=== PATIENT | female | born 1940 | race Caucasian/White ===

== ENCOUNTER 2017-03-09 08:00 | Outpatient (CLI) | payer MEDICARE, OTHER | END 2017-03-09 08:01 | disposition home or self-care (01) | DX: E78.00 Pure hypercholesterolemia, unspecified (principal) ==

== ENCOUNTER 2017-03-17 08:00 | Outpatient (CLI) | payer MEDICARE, OTHER | END 2017-03-17 08:01 | disposition home or self-care (01) | DX: Z12.31 Encounter for screening mammogram for malignant neoplasm of breast (principal); Z85.3 Personal history of malignant neoplasm of breast; Z90.12 Acquired absence of left breast and nipple ==

== ENCOUNTER 2017-03-20 14:06 | Outpatient (CLI) | payer MEDICARE, OTHER | END 2017-03-20 14:07 | disposition home or self-care (01) | DX: M85.88 Other specified disorders of bone density and structure, other site (principal) ==

== ENCOUNTER 2017-03-25 07:42 | Outpatient (CLI) | payer MEDICARE, OTHER ==
[2017-03-25] MEDS ORDERED: GADOBUTROL 7.5 MMOL/7.5 ML VIAL IVP ONE (08:29)
--- NOTE | 2017-03-25 12:04 | MRI Report ---
MRI BRAIN WITHOUT AND WITH CONTRAST CLINICAL HISTORY: 76-year-old female with headache. History of breast cancer. Please assess. COMPARISON: None. TECHNIQUE: 1. T1 sagittal and fat-saturated T2 coronal. 2. Axial 3-D T1 MP RAGE, FLAIR, T2, T2*, and DWI. 3. 6 mL of IV Gadavist. T1 3-D axial sequence. FINDINGS: There is very mild generalized prominence of the cerebral cortical sulci and third and lateral ventri cles, well within normal limits for stated age. A very mild amount of white matter disease is identified in the supratentorial brain, manifested as f ocal and confluent T2 hyperintensities that are scattered throughout the periventricular, deep, and s ubcortical white matter of the frontal and parietal lobes. Signal intensity of cortex and white matte r is otherwise unremarkable. Flow voids are demonstrated in the main intracranial arteries. No abnormal diffusion restriction is d emonstrated. No evidence of acute or chronic hemorrhage on T2* GRE sequence. No enhancing space-occupying mass lesion is demonstrated on postcontrast sequence. In addition, no pa thologic meningeal or cranial nerve enhancement is identified. There is normal intravascular contrast enhancement in the dural venous sinuses and deep venous structures. This effectively excludes the po ssibility of venous thrombosis. Limited assessment of the orbits reveals no gross pathology. There is minor mucosal thickening in a few ethmoid air cells. The paranasal sinuses are otherwise elisha ar. A small amount of fluid is identified in the left mastoid, most prominent in the mastoid tip. The etiology is uncertain. No soft tissue swelling is identified overlying the left mastoid. In addition , there is no evidence of an obstructing nasopharyngeal mass. Marrow signal intensity in the regional skeletal structures is unremarkable. In particular, no T2 hyp erintense or enhancing bone metastasis is demonstrated. IMPRESSION: 1. A very mild amount of white matter disease is identified, as described. The findings are relativel y nonspecific; however, this most likely represents chronic microangiopathy. 2. Otherwise, unremarkable brain MRI. In particular, no evidence of arch and, hemorrhage, space-occup mraciano mass lesion or other acute intracranial pathology. 3. Small left mastoid effusion, as described above, of uncertain etiology and clinical significance. The possibility of active infection is considered unlikely; however, clinical correlation is advised. Referring Provider Line: [phone] SITE ID: [id number]
== END 2017-03-25 07:43 | disposition home or self-care (01) ==
LOC: DI 07:42
PROVIDERS: ATTEND Physician Assistant Medical
DX: R01.1 Cardiac murmur, unspecified (principal); R90.82 White matter disease, unspecified; M85.88 Other specified disorders of bone density and structure, other site; R51 Headache; Z85.3 Personal history of malignant neoplasm of breast
CPT/HCPCS: 70553; 77080; 93306; A9585

== ENCOUNTER 2018-04-07 07:00 | Outpatient (CLI) | payer MEDICARE, OTHER ==
--- NOTE | 2018-04-08 14:11 | Mammography Report ---
DIGITAL SCREENING MAMMOGRAM: 04/07/2018 CLINICAL INDICATION: A 77-year-old with personal history of left breast cancer, status post mastectomy and chemoradiation. TECHNIQUE: Routine right CC and MLO projections were obtained. COMPARISON: 03/2017, 10/2015, 07/2014, 07/2013, 07/2012, 06/2011, 06/2010. FINDINGS: The right breast again demonstrates heterogeneously dense fibroglandular parenchyma. Coarse and punctate, typically benign calcifications are present. No suspicious masses, clustered microcalcifications, or regions of architectural distortion are identified. IMPRESSION: BENIGN FINDINGS. RECOMMENDATION: Routine annual screening unless otherwise clinically indicated. BI-RADS CATEGORY 2 - BENIGN FINDINGS. STANDARD QUALIFYING STATEMENTS: 1. This examination was reviewed with the aid of Computer-Aided Detection (CAD). 2. A negative or benign imaging report should not delay biopsy if clinically suspicious findings are present. Consider surgical consultation if warranted. More than 5% of cancers are not identified by imaging. 3. Dense breasts may obscure an underlying neoplasm. TD: 04/08/2018 14:00
== END 2018-04-07 07:01 | disposition home or self-care (01) ==
LOC: DI 07:00
PROVIDERS: ATTEND Family Medicine
DX: Z12.31 Encounter for screening mammogram for malignant neoplasm of breast (principal); Z08 Encounter for follow-up examination after completed treatment for malignant neoplasm; Z85.3 Personal history of malignant neoplasm of breast

== ENCOUNTER 2018-09-01 08:44 | Outpatient (CLI) | payer MEDICARE, OTHER ==
[2018-09-01 14:22] LABS: ALBUMIN 4.2 g/dL (3.2-5.5); ALBUMIN/GLOBULIN RATIO 1.6 (1.0-2.2); ALKALINE PHOSPHATASE 86 IU/L (42-121); ALT ALANINE AMINOTRANSFERASE 25 IU/L (10-60); AST ASPARTATE AMINOTRANSFERASE 29 IU/L (10-42); BILIRUBIN,TOTAL 1.6 mg/dL (0.2-1.0); BUN - BLOOD UREA NITROGEN 17 mg/dL (6-20); CALCIUM 9.2 mg/dL (8.5-10.3); CARBON DIOXIDE - CO2 28 mmol/L (21-32); CHLORIDE 100 mmol/L (101-111); CHOLESTEROL 236 mg/dL; CREATININE 0.6 mg/dL (0.4-1.0); GFR - MDRD 97 (>89); GLUCOSE 101 mg/dL (70-100); HDL CHOLESTEROL 80 mg/dL; LDL CHOLESTEROL,CALCULATED 148 mg/dL; LDL/HDL RATIO 1.9 (<4.4); SODIUM 135 mmol/L (135-145); TOTAL PROTEIN 6.9 g/dL (6.7-8.2); VLDL CHOLESTEROL 8 mg/dL
== END 2018-09-01 08:45 ==
LOC: LAB.WCP 08:44
PROVIDERS: ATTEND Family Medicine
DX: R74.8 Abnormal levels of other serum enzymes (principal); E78.5 Hyperlipidemia, unspecified
CPT/HCPCS: 36415; 80053; 80061; 83721

== ENCOUNTER 2018-09-06 18:50 | Outpatient (CLI) | payer MEDICARE, OTHER ==
--- NOTE | 2018-09-06 20:11 | Ultrasound Report ---
Reason: LEG EDEMA,LEFT Procedure Date: 09/06/2018 Accession Number: [id number] / [id number] Procedure: US - Duplex Ext Veins Left CPT Code: FULL RESULT: EXAM: LEFT LOWER EXTREMITY VENOUS ULTRASOUND EXAM DATE: 09/06/2018 07:16 PM. CLINICAL HISTORY: LEG EDEMA,LEFT. COMPARISON: None. TECHNIQUE: Real-time sonographic vascular imaging was performed by the mark up designer through the lower extremity utilizing both color-flow and Doppler spectral analysis. Multiple data entry representative static images were saved for review. FINDINGS: Common Femoral Vein (CFV): Normal. CFV-GSV Junction: Normal. Profunda Femoral Vein (PFV): Normal. Femoral Vein (FV) Prox: Normal. Femoral Vein (FV) Mid: Normal. Femoral Vein (FV) Dist: Normal. Popliteal Vein: Normal. Posterior Tibial Veins: Normal. Peroneal Veins: Normal. Contralateral Side CFV: Normal. Other: Thin lateral knee compartment fluid collection may be secondary to joint effusion. IMPRESSION: No evidence for deep venous thrombosis. RADIA
== END 2018-09-06 18:51 | disposition home or self-care (01) ==
LOC: DI 18:50
PROVIDERS: ATTEND Family Medicine
DX: R60.0 Localized edema (principal)

== ENCOUNTER 2018-11-01 11:43 | Outpatient (CLI) | payer MEDICARE, OTHER ==
--- NOTE | 2018-11-01 18:38 | Ultrasound Report ---
Reason: BREAST PAIN,LEFT,BREAST CANCER,PERSONAL HX Procedure Date: 11/01/2018 Accession Number: [id number] / [id number] Procedure: US - Breast Unilateral Limited CPT Code: FULL RESULT: EXAM: Breast Unilateral Limited DATE: 11/01/2018 1:12 PM CLINICAL HISTORY: History of left mastectomy in 1994 with one month history of diffuse pain to the mastectomy site greatest in the inferior aspect as well as heightened cold sensitivity. TECHNIQUE: Real-time sonography was performed of both technologist and the radiologist over the mastectomy bed with greatest attention to the inferior site as directed by the patient. COMPARISON: None FINDINGS: Only normal tissues are noted throughout the mastectomy site, with attention to inferior tissues. No masses or concerning findings. IMPRESSION: No sonographic findings to correlate to symptoms of pain of the inferior mastectomy site and/or heightened cold sensitivity. Benign. BI-RADS Category 2. Clinical follow-up of symptoms is recommended with her PCP. Patient should return for additional imaging for increase in current symptoms or new symptoms or concern. This was discussed with the patient.
== END 2018-11-01 11:44 | disposition home or self-care (01) ==
LOC: DI 11:43
PROVIDERS: ATTEND Nurse Practitioner
DX: N64.4 Mastodynia (principal); Z85.3 Personal history of malignant neoplasm of breast; Z90.12 Acquired absence of left breast and nipple
CPT/HCPCS: 76642

== ENCOUNTER 2019-03-17 07:23 | Outpatient (CLI) | payer MEDICARE, OTHER ==
[2019-03-17 14:05] LABS: BASOPHILS % (AUTO) 0.8 %; EOSINOPHILS # (AUTO) 0.2 10^3/uL (0.0-0.7); EOSINOPHILS % (AUTO) 4.4 %; HGB - HEMOGLOBIN 12.9 g/dL (12.0-16.0); LYMPHOCYTES # (AUTO) 0.6 10^3/uL (1.5-3.5); LYMPHOCYTES % (AUTO) 15.1 %; MEAN CORPUSCULAR HEMOGLOBIN 28.2 pg (27.0-31.0); MEAN CORPUSCULAR HGB CONC 33.5 g/dL (32.0-36.0); MEAN CORPUSCULAR VOLUME 84.3 fL (81.0-99.0); MEAN PLATELET VOLUME 7.8 fL (7.9-10.8); MONOCYTES # (AUTO) 0.3 10^3/uL (0.0-1.0); MONOCYTES % (AUTO) 7.9 %; NEUTROPHILS % (AUTO) 71.8 %; PLT - PLATELET COUNT 248 10^3/uL (130-450); RED BLOOD COUNT 4.57 10^6/uL (4.20-5.40); RED CELL DISTRIBUTION WIDTH 15.5 % (12.0-15.0); WHITE BLOOD COUNT 4.2 x10^3/uL (4.8-10.8)
[2019-03-17 14:19] LABS: ALBUMIN 3.8 g/dL (3.2-5.5); ALBUMIN/GLOBULIN RATIO 1.2 (1.0-2.2); ALKALINE PHOSPHATASE 94 IU/L (42-121); ALT ALANINE AMINOTRANSFERASE 20 IU/L (10-60); AST ASPARTATE AMINOTRANSFERASE 25 IU/L (10-42); BILIRUBIN,TOTAL 1.3 mg/dL (0.2-1.0); BUN - BLOOD UREA NITROGEN 14 mg/dL (6-20); CALCIUM 9.1 mg/dL (8.5-10.3); CARBON DIOXIDE - CO2 27 mmol/L (21-32); CHLORIDE 99 mmol/L (101-111); CHOL/HDL RATIO 2.6 (<4.4); CHOLESTEROL 208 mg/dL; CREATININE 0.6 mg/dL (0.4-1.0); GFR - MDRD 97 (>89); GLUCOSE 98 mg/dL (70-100); HDL CHOLESTEROL 79 mg/dL; LDL CHOLESTEROL,CALCULATED 121 mg/dL; LDL/HDL RATIO 1.5 (<4.4); SODIUM 134 mmol/L (135-145); TOTAL PROTEIN 6.9 g/dL (6.7-8.2); VLDL CHOLESTEROL 8 mg/dL
== END 2019-03-17 07:24 | disposition home or self-care (01) ==
LOC: LAB.WCP 07:23
PROVIDERS: ATTEND Family Medicine
DX: R74.8 Abnormal levels of other serum enzymes (principal); R68.89 Other general symptoms and signs; E78.5 Hyperlipidemia, unspecified
CPT/HCPCS: 36415; 80053; 80061; 83721; 84443; 85025

== ENCOUNTER 2019-03-25 08:40 | Outpatient (CLI) | payer MEDICARE, OTHER ==
--- NOTE | 2019-03-28 08:37 | Mammography Report ---
Reason: SCREENING MAMMO, LEUKOCYTOPENIA Procedure Date: 03/25/2019 Accession Number: [id number] / [id number] Procedure: JOHN - Screening Mammo Right w/Irwin CPT Code: FULL RESULT: EXAM: Screening Mammo Right w/Irwin DATE: 03/25/2019 9:03 AM CLINICAL HISTORY: Personal history of treated left breast cancer status post mastectomy in 1994. Screening right breast. TECHNIQUE: (R) - Right CC and MLO views were obtained. COMPARISON: 04/07/2018 through 08/03/2014 PARENCHYMAL PATTERN: (D) - The breast demonstrates heterogeneously dense fibroglandular parenchyma. FINDINGS: Right breast: There are no suspicious masses, calcifications, or areas of distortion. IMPRESSION: Negative examination. BI-RADS category 1. RECOMMENDATION: (ANNUAL) - Recommend routine annual screening mammography. BI-RADS CATEGORY: (1) - Negative. STANDARD QUALIFYING STATEMENTS: 1. This examination was not reviewed with the aid of Computer-Aided Detection (CAD). 2. A negative or benign imaging report should not preclude biopsy if clinically suspicious findings are present. 3. Dense breasts may obscure an underlying neoplasm. 4. This examination was reviewed with the aid of 3D breast imaging (tomosynthesis).
== END 2019-03-25 08:41 | disposition home or self-care (01) ==
LOC: DI 08:40
PROVIDERS: ATTEND Internal Medicine Hematology & Oncology
DX: Z12.31 Encounter for screening mammogram for malignant neoplasm of breast (principal); Z85.3 Personal history of malignant neoplasm of breast; Z90.12 Acquired absence of left breast and nipple
CPT/HCPCS: 77063

== ENCOUNTER 2019-08-11 08:00 | Outpatient (CLI) | payer MEDICARE, OTHER | END 2019-08-11 23:59 | disposition home or self-care (01) | LOC: LAB.WCP 08:00 | PROVIDERS: ATTEND Family Medicine | DX: R51 Headache (principal) | CPT/HCPCS: 36415; 85651; 86140 ==

== ENCOUNTER 2019-08-22 11:59 | Outpatient (CLI) | payer MEDICARE, OTHER ==
--- NOTE | 2019-08-22 14:21 | MRI Report ---
Reason: HEADACHE Procedure Date: 08/22/2019 Accession Number: [id number] / [id number] Procedure: MRI - Angio Brain W/O (MRA) CPT Code: FULL RESULT: EXAM MRA BRAIN EXAM DATE: 08/22/2019 12:56 PM. CLINICAL HISTORY: Headache and confusion. Reported family history of aneurysm. COMPARISON: None. TECHNIQUE: Multiplanar, multisequence MRA sequences of the brain were performed. Other: None. Post-processing: Multiplanar 3D MIP reconstructions. IV Contrast: None. FINDINGS: Minimal visualized signal in the region of the left vertebral artery lumen proximal to the left PICA origin. Absence of expected arterial flow signal in the distal left extracranial vertebral artery. The left PICA may be filling via retrograde flow in the left vertebral artery terminal segment. Possible arterial occlusive disease, of unknown duration or etiology, of the proximal left intradural vertebral artery and/or left cervical vertebral artery. Unremarkable appearance of what may be congenitally dominant distal right vertebral artery which continues as the basilar artery which also appears unremarkable. Patent well-developed right posterior communicating artery. No other evidence for proximal intracranial large artery flow-limiting stenosis, occlusion or filling defect, specifically with reference to the anterior, middle and posterior cerebral arteries. Both distal internal carotid arteries are patent. There appears to be a shallow wide-necked asymmetric arterial protrusion from the inferomedial aspect of the ophthalmic segment of the right ICA. This measures as much as 3 mm wide and 1.5 mm deep on, for example, reference image 16 of series 403. No other evidence for aneurysm of the redding of Khan. IMPRESSION: 1. Nonspecific shallow arterial asymmetric protrusion from the right supraclinoid ICA up to 3 x 1.5 mm. This may represent small shallow wide-necked aneurysm, arterial degenerative irregularity/ectasia or imaging artifact. Head MRA follow-up to establish stability in one year is suggested. 2. Absence of normal visualized arterial flow signal in the left vertebral artery below the left PICA origin. This is of unknown etiology or duration. Acquired arterial occlusive disease or congenital variant in anatomy may account for this appearance which could be further characterized as clinically warranted by MRA or CTA of the neck. 3. Otherwise grossly unremarkable screening redding of Khan MRA. RADIA
== END 2019-08-22 12:00 | disposition home or self-care (01) ==
LOC: DI 11:59
PROVIDERS: ATTEND Family Medicine
DX: R51 Headache (principal)
CPT/HCPCS: 70544

== ENCOUNTER 2019-08-30 16:14 | Outpatient (CLI) | payer MEDICARE, OTHER ==
--- NOTE | 2019-09-01 09:55 | MRI Report ---
Reason: VERTEBRAL ARTERY STENOSIS Procedure Date: 08/30/2019 Accession Number: [id number] / [id number] Procedure: MRI - Angio Neck W/O (MRA) CPT Code: FULL RESULT: EXAM: MR ANGIOGRAM NECK EXAM DATE: 08/30/2019 05:19 PM. CLINICAL HISTORY: Vertebral artery stenosis. COMPARISON: MR angiogram head 08/22/2019. TECHNIQUE: [id number] MRA sequences of the neck were performed. Other: None. Post-processing: Multiplanar 3D MIP reconstructions. IV Contrast: None. Evaluation of arterial stenosis is based on a NASCET method of measurement. FINDINGS: The CCA and cervical ICA demonstrate no significant stenosis on the right or on the left. The right vertebral artery is patent throughout its cervical course without significant narrowing present. The right vertebral artery is dominant. 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 2. No significant stenosis is seen in either cervical ICA or the dominant right vertebral artery. RADIA
== END 2019-08-30 16:15 | disposition home or self-care (01) ==
LOC: DI 16:14
PROVIDERS: ATTEND Family Medicine
DX: I65.02 Occlusion and stenosis of left vertebral artery (principal)
CPT/HCPCS: 70547

== ENCOUNTER 2020-04-20 08:42 | Outpatient (CLI) | payer MEDICARE, OTHER ==
--- NOTE | 2020-04-23 09:55 | Mammography Report ---
UNILATERAL RIGHT DIGITAL SCREENING MAMMOGRAM 3D/2D: 04/20/2020 CLINICAL: Routine screening. Personal history of left breast cancer with mastectomy. Comparison is made to exams dated: 03/25/2019 mammogram, 04/07/2018 mammogram, 03/17/2017 mammogram, and 11/05/2015 mammogram - [facility]. The tissue of right breast is heterogeneousl y dense. This may lower the sensitivity of mammography. There are benign calcifications in the right breast. There also are benign vascular calcifications i n the right breast. No significant masses, calcifications, or other findings are seen in the breast. There has been no significant interval change. IMPRESSION: There is no mammographic evidence of malignancy. A 1 year screening mammogram is recommended. This exam was interpreted at Station ID: [id number]. NOTE: For mammograms, a report in lay terms will be sent to the patient. Approximately 15% of breast malignancies will not be visualized mammographically. In the management of a palpable breast mass, a negative mammogram must not discourage biopsy of a clinically suspicious lesion. Electronically Signed By: Bryson Ramirez M.D. ddidalia/penrad:04/20/2020 12:15:29 ACR BI-RADS Category 2: Benign Finding(s) 3342F PARENCHYMAL PATTERN: (D) - The breast(s) demonstrate(s) heterogeneously dense fibroglandular nathalia do. BI-RADS CATEGORY: (2) - 2 RECOMMENDATION: (ANNUAL) - Recommend routine annual screening mammography. [id number] 1 year screening LATERALITY: (B)
== END 2020-04-20 08:43 | disposition home or self-care (01) ==
LOC: DI 08:42
PROVIDERS: ATTEND Internal Medicine Hematology & Oncology
DX: Z12.31 Encounter for screening mammogram for malignant neoplasm of breast (principal); Z85.3 Personal history of malignant neoplasm of breast; Z90.12 Acquired absence of left breast and nipple
CPT/HCPCS: 77063

== ENCOUNTER 2020-04-25 09:20 | Outpatient (CLI) | payer MEDICARE, OTHER ==
--- NOTE | 2020-04-25 09:53 | XRAY Report ---
Reason: RIGHT HAND PAIN Procedure Date: 04/25/2020 Accession Number: [id number] / [id number] Procedure: WCP - Hand 3 View RT CPT Code: Final Report FULL RESULT: PROCEDURE: Hand 3 View RT INDICATIONS: RIGHT HAND PAIN TECHNIQUE: 3 views of the hand(s) acquired. COMPARISON: None FINDINGS: Bones: No fractures or dislocations. Diffuse interphalangeal joint degeneration, most pronounced at the index finger DIP joint. First CMC and triscaphe joint degeneration. Numerous marginal and juxta-articular lucencies are present primarily at the second and third MCP joints, distal interphalangeal joints of the middle and ring finger as well as the first MCP joint. There is also lucency involving the distal radius. Soft tissues: No suspicious soft tissue calcifications. IMPRESSION: Diffuse hand joint degeneration, most pronounced at the index finger DIP joint Scattered juxta-articular lucencies suspicious for erosions/inflammatory arthropathy. Reviewed by: Dima Berumen MD on 04/25/2020 9:52 AM PDT Approved by: Dima Berumen MD on 04/25/2020 9:52 AM PDT Station ID: [id number]
== END 2020-04-25 23:59 | disposition home or self-care (01) ==
LOC: DI.WCP 09:20
PROVIDERS: ATTEND Family Medicine
DX: M19.041 Primary osteoarthritis, right hand (principal)

== ENCOUNTER 2020-05-04 07:00 | Outpatient (CLI) | payer MEDICARE, OTHER | END 2020-05-04 23:59 | disposition home or self-care (01) | LOC: LAB.R 07:00 | PROVIDERS: ATTEND Family Medicine | DX: E78.5 Hyperlipidemia, unspecified (principal) | CPT/HCPCS: 83721 ==

== ENCOUNTER 2020-05-23 08:09 | Outpatient (CLI) | payer MEDICARE, OTHER ==
--- NOTE | 2020-05-23 10:10 | DEXA Report ---
Reason: BONE DISORDER Procedure Date: 05/23/2020 Accession Number: [id number] / [id number] Procedure: DEX - Dexa Spine and/or Hip CPT Code: Final Report FULL RESULT: PROCEDURE: Dexa Spine and/or Hip INDICATIONS: BONE DISORDER TECHNIQUE: Dual energy x-ray absorptiometry (DXA) was performed on a [employer]. Regions measured are the AP Spine, femoral neck, and if needed forearm. COMPARISON: Dexa, march 20, 2015. FINDINGS: Lumbar Spine (L1 and L2): Bone Mineral Density 1.001 g/cm/cm,T score -1.1, -0.8 Left Hip: Bone Mineral Density 0.842 g/cm/cm,T score -1.3, (T score greater or equal to -1.0: NORMAL) (T score from -1.1 to -2.4: OSTEOPENIA) (T score less than or equal to -2.5 to: OSTEOPOROSIS) Impression: The patient is osteopenic based on WHO criteria. Compared with 03/20/2017, the patient's bone density has increased in lumbar spine but not significant changed in the left hip. Patients with diagnosis of osteoporosis or osteopenia should have regular bone mineral density assessment. For those eligible for Medicare, routine testing is allowed once every 2 years. Testing frequency can be increased for patients who have rapidly progressing disease or for those who are receiving medical therapy to restore bone mass. Reviewed by: Eleni Roberts MD on 05/23/2020 10:09 AM PDT Approved by: Eleni Roberts MD on 05/23/2020 10:09 AM PDT Station ID: [id number]
== END 2020-05-23 08:10 | disposition home or self-care (01) ==
LOC: DI 08:09
PROVIDERS: ATTEND Family Medicine
DX: M85.89 Other specified disorders of bone density and structure, multiple sites (principal)
CPT/HCPCS: 77080

== ENCOUNTER 2021-05-06 08:43 | Outpatient (CLI) | payer MEDICARE, OTHER ==
[2021-05-06 09:43] LABS: CHOL/HDL RATIO 3.4 (<4.4); CHOLESTEROL 232 mg/dL; HDL CHOLESTEROL 68 mg/dL; LDL CHOLESTEROL,CALCULATED 156 mg/dL; LDL CHOLESTEROL,DIRECT 143 mg/dL; LDL/HDL RATIO 2.3 (<4.4); TRIGLYCERIDES 42 mg/dL; VLDL CHOLESTEROL 8 mg/dL
--- NOTE | 2021-05-06 14:56 | XRAY Report ---
PROCEDURE: Thoracic Spine 2 View INDICATIONS: THORACIC PAIN TECHNIQUE: 3 views of the thoracic spine were acquired. COMPARISON: None. FINDINGS: Bones: No fractures or dislocations. No suspicious bony lesions. 12 pairs of ribs are noted, and a ppear intact where visualized. Note is made of mild convex rightward scoliosis at the upper lumbar sp ine and slight convex leftward scoliosis at the thoracolumbar junction. On the lateral view no compre ssion fracture is seen. There is mild degenerative disc height reduction and mild endplate sclerotic exchange specialist the mid and low thoracic spine, expected for age. Soft tissues: No paravertebral stripe thickening. IMPRESSION: No trauma found, mild scoliosis as discussed, mild mid and lower thoracic degenerative disc disease w ithout subluxation. Reviewed by: Gregorio Cruz MD on 05/06/2021 2:55 PM PDT Approved by: Gregorio Cruz MD on 05/06/2021 2:55 PM PDT Station ID: [id number]
== END 2021-05-06 08:44 | disposition home or self-care (01) ==
LOC: LAB 08:43
PROVIDERS: ATTEND Family Medicine
DX: E78.5 Hyperlipidemia, unspecified (principal); M51.34 Other intervertebral disc degeneration, thoracic region
CPT/HCPCS: 36415; 80061; 83721

== ENCOUNTER 2021-06-21 09:42 | Outpatient (CLI) | payer MEDICARE, OTHER ==
--- NOTE | 2021-06-21 10:36 | XRAY Report ---
PROCEDURE: Lumbar Spine 2 View INDICATIONS: BACK PAIN TECHNIQUE: 3 views of the lumbar spine were acquired. COMPARISON: None. FINDINGS: Bones: 5 [id number] vertebrae are present. Extensive degenerative change. Degenerative anteroli sthesis of L4 on L5 measures 10 mm. Degenerative anterolisthesis of L3 on L4 measures 5 mm. Advanced multilevel facet arthropathy. Advanced multilevel degenerative disc disease. Suspect canal stenosis. No vertebral body compression fractures. No suspicious bony lesions. Soft tissues: Overlying bowel gas pattern is normal. No suspicious soft tissue calcifications. IMPRESSION: Extensive degenerative change. Suspect canal stenosis. No evidence acute bony abnormalit y of the lumbar spine. If clinical suspicion and/or symptoms persist, further assessment with repeat plain films or advanced imaging (e.g., CT, MRI, or bone scan) may be helpful for further assessment. Reviewed by: Narinder Mckenzie MD on 06/21/2021 10:35 AM PDT Approved by: Narinder Mckenzie MD on 06/21/2021 10:35 AM PDT Station ID: [id number]
--- NOTE | 2021-06-21 10:41 | XRAY Report ---
PROCEDURE: Hip w/Pelvis 2-3V LT INDICATIONS: HIP PAIN, LEFT TECHNIQUE: AP pelvis with lateral view(s) of the bilateral hip(s). COMPARISON: None. FINDINGS: Bones: No fractures or dislocations. Pelvic ring appears intact. No suspicious bony lesions. Mild left hip degenerative change. Total right hip arthroplasty noted. Soft tissues: The visualized bowel gas pattern is normal. No suspicious soft tissue calcifications. IMPRESSION: Mild left hip degenerative change. No evidence acute bony abnormality of the pelvis and left hip. If clinical suspicion and/or symptoms persist, further assessment with repeat plain films or advanced imaging (e.g., CT, MRI, or bone scan) may be helpful for further assessment. Reviewed by: Narinder Mckenzie MD on 06/21/2021 10:39 AM PDT Approved by: Narinder Mckenzie MD on 06/21/2021 10:39 AM PDT Station ID: [id number]
== END 2021-06-21 09:43 | disposition home or self-care (01) ==
LOC: DI.N 09:42
PROVIDERS: ATTEND Physician Assistant Medical
DX: M43.16 Spondylolisthesis, lumbar region (principal); M47.816 Spondylosis without myelopathy or radiculopathy, lumbar region; M51.36 Other intervertebral disc degeneration, lumbar region; M16.12 Unilateral primary osteoarthritis, left hip

== ENCOUNTER 2021-07-02 14:27 | Outpatient (CLI) | payer MEDICARE, OTHER ==
--- NOTE | 2021-07-03 08:03 | Mammography Report ---
UNILATERAL RIGHT DIGITAL SCREENING MAMMOGRAM 3D/2D: 07/02/2021 CLINICAL: Routine screening. Personal history of left breast cancer. Comparison is made to exams dated: 04/20/2020 mammogram - [facility], 03/25/2019 mamm ogram, 11/01/2018 ultrasound, 04/07/2018 mammogram, 03/17/2017 mammogram, and 11/05/2015 mammogram - [facility]. The tissue of right breast is heterogeneously dense. This may lower the sensitivity of mammography. There are benign calcifications in the right breast. There also are benign vascular calcifications i n the right breast. No significant masses, calcifications, or other findings are seen in the breast. There has been no significant interval change. IMPRESSION: BENIGN There is no mammographic evidence of malignancy. A 1 year screening mammogram is recommended. This exam was interpreted at Station ID: [id number]. NOTE: For mammograms, a report in lay terms will be sent to the patient. Approximately 15% of breast malignancies will not be visualized mammographically. In the management of a palpable breast mass, a negative mammogram must not discourage biopsy of a clinically suspicious lesion. Electronically Signed By: Addy bella/penrad:07/02/2021 15:38:32 ACR BI-RADS Category 2: Benign Finding(s) 3342F PARENCHYMAL PATTERN: (D) - The breast(s) demonstrate(s) heterogeneously dense fibroglandular nathalia do. BI-RADS CATEGORY: (2) - 2 RECOMMENDATION: (ANNUAL) - Recommend routine annual screening mammography. [id number] 1 year screening LATERALITY: (B)
== END 2021-07-02 14:28 | disposition home or self-care (01) ==
LOC: DI 14:27
DX: Z12.31 Encounter for screening mammogram for malignant neoplasm of breast (principal); Z85.3 Personal history of malignant neoplasm of breast

== ENCOUNTER 2021-10-20 07:01 | Emergency (ER) | payer MEDICARE, OTHER ==
[2021-10-20] MEDS ORDERED: SODIUM CHLORIDE 0.9% 1,000 ML IV STA (07:30)
[2021-10-20 07:47] LABS: BASOPHILS # (AUTO) 0.1 10^3/uL (0.0-0.1); BASOPHILS % (AUTO) 1.1 %; EOSINOPHILS # (AUTO) 0.1 10^3/uL (0.0-0.7); EOSINOPHILS % (AUTO) 2.4 %; HCT - HEMATOCRIT 38.6 % (37.0-47.0); HGB - HEMOGLOBIN 13.3 g/dL (12.0-16.0); LYMPHOCYTES # (AUTO) 0.5 10^3/uL (1.5-3.5); LYMPHOCYTES % (AUTO) 11.8 %; MEAN CORPUSCULAR HEMOGLOBIN 30.9 pg (27.0-31.0); MEAN CORPUSCULAR HGB CONC 34.5 g/dL (32.0-36.0); MEAN CORPUSCULAR VOLUME 89.6 fL (81.0-99.0); MONOCYTES # (AUTO) 0.4 10^3/uL (0.0-1.0); MONOCYTES % (AUTO) 8.1 %; NEUTROPHILS # (AUTO) 3.5 10^3/uL (1.5-6.6); NEUTROPHILS % (AUTO) 76.2 %; PLT - PLATELET COUNT 230 10^3/uL (130-450); RED BLOOD COUNT 4.31 10^6/uL (4.20-5.40); RED CELL DISTRIBUTION WIDTH 13.6 % (12.0-15.0); WHITE BLOOD COUNT 4.6 x10^3/uL (4.8-10.8)
[2021-10-20 08:14] LABS: ALBUMIN 3.8 g/dL (3.2-5.5); ALBUMIN/GLOBULIN RATIO 1.6 (1.0-2.2); BILIRUBIN,TOTAL 1.2 mg/dL (0.2-1.0); CALCIUM 8.7 mg/dL (8.5-10.3); CREATININE 0.5 mg/dL (0.4-1.0); TOTAL PROTEIN 6.2 g/dL (6.7-8.2)
[2021-10-20 08:15] LABS: POTASSIUM 4.3 mmol/L (3.5-5.0)
[2021-10-20] MEDS ORDERED: METOPROLOL SUCCINATE 25 MG TABLET PO STA (08:20)
--- NOTE | 2021-10-20 08:23 | ED Physician Documentation ---
PD HPI CHEST PAIN - Stated complaint Stated Complaint: CHEST PX - Chief complaint Chief Complaint: Cardiac - History obtained from History obtained from: Patient - Additional information Additional information: Patient comes emergency department chief complaint of "my blood pressure has been going up for 4 months and I have had palpitations". Patient states over the last several months, her blood pressure has been slowly becoming more elevated. She states she called to make an appoint with Dr. Flores about a month and a half ago, but Dr. Flores did not have any appointments for 2 months, so the patient did not make her appointment. She splits her time between here and [place] and has been in [place] for about a month before coming back up here. She states that she has an appointment with her [place] primary care physician the first week of November. Otherwise, she has not seen anybody for her blood pressure,. Patient states that she is not had any chest pain or shortness of breath, but she does feel occasional palpitations which she has had for many years. However, this morning, patient states her blood pressure systolic was in the 180s and she felt as though her heart was fluttering or racing. She states the sensation only lasted for somewhere less than a minute, and then stopped. The patient states she did not take her pulse and has no idea how fast it might have been going during the episode. Patient denies any other palpitations since. No other known heart issues. She has never had an MN or other dysrhythmias that of been diagnosed. She states she is overall pretty healthy. No symptoms currently. Review of Systems Ten Systems: 10 systems reviewed and negative Constitutional: reports: Reviewed and negative Eyes: reports: Reviewed and negative Ears: reports: Reviewed and negative Nose: reports: Reviewed and negative Throat: reports: Reviewed and negative Cardiac: reports: Palpitations Respiratory: reports: Reviewed and negative GI: reports: Reviewed and negative : reports: Reviewed and negative Skin: reports: Reviewed and negative Musculoskeletal: reports: Reviewed and negative Neurologic: reports: Reviewed and negative Psychiatric: reports: Reviewed and negative Endocrine: reports: Reviewed and negative Immunocompromised: reports: Reviewed and negative PD PAST MEDICAL HISTORY - Past Medical History Past Medical History: Yes Cardiovascular: High cholesterol, Other Respiratory: None Endocrine/Autoimmune: None GI: Chronic constipation CUSTOMER SERVICE SPECIALIST: Breast cancer : Other HEENT: None Psych: Depression Musculoskeletal: Osteoarthritis, Osteopenia Derm: None - Past Surgical History Past Surgical History: Yes General: Colonoscopy /CUSTOMER SERVICE SPECIALIST: Mastectomy - Present Medications Home Medications: Ambulatory Orders Medication Instructions Recorded Confirmed Ascorbate Calcium [Vitamin C] 500 mg PO DAILY 03/22/13 10/20/21 Aspirin [Aspir 81] 81 mg PO DAILY 03/22/13 10/20/21 Calcium Carbonate/Vitamin D3 1 each PO DAILY 03/22/13 10/20/21 [Calcium + Vitamin D Tablet] Multivitamin [Multi-Vitamin Daily] 1 each PO DAILY 03/22/13 10/20/21 [place]-3 Fatty Acids [Fish Oil] 1 cap PO DAILY 03/11/16 10/20/21 Metoprolol Succinate [Toprol Xl] 25 mg PO DAILY #30 tablet 10/20/21 - Allergies Allergies/Adverse Reactions: Allergies Allergy/AdvReac Type Severity Reaction Status Date / Time No Known Drug Allergies Allergy Verified 10/20/21 07:18 - Social History Does the pt smoke?: No Smoking Status: Never smoker PD ED PE NORMAL - Vitals Vital signs reviewed: Yes - General General: Alert and oriented X 3, No acute distress, Well developed/nourished - HEENT HEENT: Atraumatic, PERRL, EOMI, Moist mucous membranes - Neck Neck: Supple, no meningeal sign - Cardiac Cardiac: RRR, No murmur, Strong equal pulses - Respiratory Respiratory: No respiratory distress, Clear bilaterally - Abdomen Abdomen: Soft, Non tender, Non distended - Derm Derm: Normal color, Warm and dry, No rash - Extremities Extremities: No deformity, No edema, No calf tenderness / cord - Neuro Neuro: Alert and oriented X 3, 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, Normal speech - Psych Psych: Normal mood, Normal affect Results - Vitals Vitals: Vital Signs - 24 hr 10/20/21 07:13 Temperature 35.9 C L Heart Rate 86 Respiratory 16 Rate Blood Pressure 185/82 H O2 Saturation 100 Oxygen O2 Source Room air - EKG (time done) 0706 Rate: Rate (enter#) (79) Rhythm: NSR [place]: Normal QRS: Normal Ischemia: Normal ST segments Compare to prior EKG: Old EKG unavailable Computer interpretation: Agree with computer - Labs Labs: Laboratory Tests 10/20/21 10/20/21 10/20/21 07:40 07:40 07:40 WBC 4.6 L RBC 4.31 Hgb 13.3 Hct 38.6 MCV 89.6 MCH 30.9 MCHC 34.5 RDW 13.6 Plt Count 230 MPV 9.0 Neut # (Auto) 3.5 Lymph # (Auto) 0.5 L [place] # (Auto) 0.4 Eos # (Auto) 0.1 Baso # (Auto) 0.1 Absolute Nucleated RBC 0.00 Nucleated RBC % 0.0 Sodium 134 L Potassium 4.3 Chloride 98 L Carbon Dioxide 25 Anion Gap 11.0 BUN 18 Creatinine 0.5 Estimated GFR (MDRD) 119 Glucose 119 H Calcium 8.7 Total Bilirubin 1.2 H AST 26 ALT 16 Alkaline Phosphatase 87 Troponin I High Sens 5.5 Total Protein 6.2 L Albumin 3.8 Globulin 2.4 Albumin/Globulin Ratio 1.6 Lipase 26 PD MEDICAL DECISION MAKING - ED course Complexity details: reviewed old records, reviewed results, re-evaluated patient, considered differential, d/w patient ED course: The patient was feeling well right now and I did discuss with her that it is important for chronic issues like her slowly elevating blood pressure, that she see her primary care physician. I have advised her that even if the appointment is 2 months out, she should at least make appointment so she has it when the time comes around. 2The patient will also need to see her primary doctor to discuss having a ZIO monitor placed to determine what exactly is going on with her palpitations. The patient's labs are unremarkable and her EKG was normal. I discussed starting a lower dose of metoprolol to help with both the palpitations and the blood pressure. The patient understands that coming to the emergency department for this kind of thing is not ideal because we will not be seeing her in follow-up, but since her blood pressure has ranged from the 150s to 170s systolic here, and she has been having increasing palpitations, it is probably a good idea for her to start on something. We have discussed that the medication may have unforeseen side effects, and she will have to decide whether to keep taking it if she does not like the way it makes her feel. We have discussed the usual indications for return. Departure - Departure Disposition: 01 Home, Self Care Clinical Impression: Palpitations Hypertension Qualifiers: Hypertension type: unspecified Qualified Code(s): I10 - Essential (primary) hypertension Condition: Stable Instructions: ED Hypertension New Begin Tx, ED Palpitations Prescriptions: Metoprolol Succinate [Toprol Xl] 25 mg PO DAILY #30 tablet
[2021-10-20 08:36] VITALS: BP 157/74
== END 2021-10-20 08:49 | disposition home or self-care (01) ==
LOC: ED 07:01
DX: R00.2 Palpitations (principal); I10 Essential (primary) hypertension; Z79.82 Long term (current) use of aspirin
CPT/HCPCS: 36415; 80053; 83690; 84484; 85025; 93005; 99283; 99284; A9270

== ENCOUNTER 2022-03-07 08:39 | Outpatient (CLI) | payer MEDICARE, OTHER ==
[2022-03-07 12:31] LABS: BASOPHILS % (AUTO) 0.9 %; EOSINOPHILS # (AUTO) 0.3 10^3/uL (0.0-0.7); EOSINOPHILS % (AUTO) 6.2 %; HCT - HEMATOCRIT 39.6 % (37.0-47.0); HGB - HEMOGLOBIN 13.5 g/dL (12.0-16.0); LYMPHOCYTES # (AUTO) 0.8 10^3/uL (1.5-3.5); LYMPHOCYTES % (AUTO) 17.5 %; MEAN CORPUSCULAR HEMOGLOBIN 30.5 pg (27.0-31.0); MEAN CORPUSCULAR HGB CONC 34.1 g/dL (32.0-36.0); MEAN CORPUSCULAR VOLUME 89.4 fL (81.0-99.0); MEAN PLATELET VOLUME 9.8 fL (7.9-10.8); MONOCYTES # (AUTO) 0.5 10^3/uL (0.0-1.0); MONOCYTES % (AUTO) 9.8 %; NEUTROPHILS # (AUTO) 3.1 10^3/uL (1.5-6.6); NEUTROPHILS % (AUTO) 65.2 %; PLT - PLATELET COUNT 280 10^3/uL (130-450); RED BLOOD COUNT 4.43 10^6/uL (4.20-5.40); RED CELL DISTRIBUTION WIDTH 13.8 % (12.0-15.0); WHITE BLOOD COUNT 4.7 x10^3/uL (4.8-10.8)
[2022-03-07 12:51] LABS: ALBUMIN 4.1 g/dL (3.2-5.5); ALBUMIN/GLOBULIN RATIO 1.6 (1.0-2.2); BILIRUBIN,TOTAL 1.2 mg/dL (0.2-1.0); CALCIUM 9.4 mg/dL (8.5-10.3); CREATININE 0.7 mg/dL (0.4-1.0); POTASSIUM 4.3 mmol/L (3.5-5.0); TOTAL PROTEIN 6.7 g/dL (6.7-8.2)
[2022-03-07 13:07] LABS: THYROID STIMULATING HORMONE 1.35 uIU/mL (0.34-5.60)
== END 2022-03-07 08:40 | disposition home or self-care (01) ==
LOC: DI.N 08:39
PROVIDERS: ATTEND Nurse Practitioner Family
DX: I10 Essential (primary) hypertension (principal)
CPT/HCPCS: 36415; 80053; 82607; 84443; 85025

== ENCOUNTER 2022-06-16 09:49 | Outpatient (CLI) | payer MEDICARE, OTHER ==
--- NOTE | 2022-06-19 08:31 | Mammography Report ---
UNILATERAL RIGHT DIGITAL SCREENING MAMMOGRAM 3D/2D: 06/16/2022 CLINICAL: Routine screening. Comparison is made to exams dated: 07/02/2021 mammogram, 04/20/2020 mammogram - [facility], and 03/25/2019 mammogram - [facility]. The tissue of right breast is heter ogeneously dense. This may lower the sensitivity of mammography. There are benign calcifications in the right breast. There also are benign vascular calcifications i n the right breast. No significant masses, calcifications, or other findings are seen in the breast. There has been no significant interval change. IMPRESSION: BENIGN There is no mammographic evidence of malignancy. A 1 year screening mammogram is recommended. This exam was interpreted at Station ID: [id number]. NOTE: For mammograms, a report in lay terms will be sent to the patient. Approximately 15% of breast malignancies will not be visualized mammographically. In the management of a palpable breast mass, a negative mammogram must not discourage biopsy of a clinically suspicious lesion. Electronically Signed By: Tone [email or web address]:06/18/2022 10:32:08 ACR BI-RADS Category 2: Benign Finding(s) 3342F PARENCHYMAL PATTERN: (D) - The breast(s) demonstrate(s) heterogeneously dense fibroglandular nathalia do. BI-RADS CATEGORY: (2) - 2 RECOMMENDATION: (ANNUAL) - Recommend routine annual screening mammography. [id number] 1 year screening LATERALITY: (B)
== END 2022-06-16 09:50 | disposition home or self-care (01) ==
LOC: DI 09:49
PROVIDERS: ATTEND Internal Medicine Hematology & Oncology
DX: Z12.31 Encounter for screening mammogram for malignant neoplasm of breast (principal)

== ENCOUNTER 2022-07-23 07:39 | Outpatient (CLI) | payer MEDICARE, OTHER ==
--- NOTE | 2022-07-23 10:27 | XRAY Report ---
PROCEDURE: Hip w/Pelvis 1V LT INDICATIONS: L HIP PX TECHNIQUE: AP pelvis with lateral view(s) of the left hip(s). COMPARISON: None. FINDINGS: Bones: No fractures or dislocations. Pelvic ring appears intact. No suspicious bony lesions. Righ t total hip replacement appears intact with no surrounding lucency to suggest loosening or infection. The left hip has severe osteoarthritis with joint space narrowing, subchondral sclerosis and subchon dral cystic changes as well as osteophytes. Soft tissues: The visualized bowel gas pattern is normal. No suspicious soft tissue calcifications. IMPRESSION: Osteoarthritis of the left hip. Reviewed by: James Shipley on 07/23/2022 10:26 AM PDT Approved by: James Shipley on 07/23/2022 10:26 AM PDT Station ID: [id number]
== END 2022-07-23 07:40 | disposition home or self-care (01) ==
LOC: DI.N 07:39
PROVIDERS: ATTEND Nurse Practitioner Family
DX: M16.12 Unilateral primary osteoarthritis, left hip (principal); I10 Essential (primary) hypertension; E78.5 Hyperlipidemia, unspecified
CPT/HCPCS: 36415; 80053; 80061; 83721

== ENCOUNTER 2022-07-23 07:44 | Outpatient (CLI) | payer MEDICARE, OTHER ==
[2022-07-23 13:55] LABS: ALBUMIN 4.4 g/dL (3.2-5.5); ALBUMIN/GLOBULIN RATIO 1.7 (1.0-2.2); ALKALINE PHOSPHATASE 91 IU/L (42-121); ALT ALANINE AMINOTRANSFERASE 18 IU/L (10-60); AST ASPARTATE AMINOTRANSFERASE 24 IU/L (10-42); BILIRUBIN,TOTAL 1.7 mg/dL (0.2-1.0); BUN - BLOOD UREA NITROGEN 14 mg/dL (6-20); CALCIUM 9.5 mg/dL (8.5-10.3); CARBON DIOXIDE - CO2 28 mmol/L (21-32); CHLORIDE 93 mmol/L (101-111); CHOL/HDL RATIO 3.3 (<4.4); CHOLESTEROL 263 mg/dL; CREATININE 0.6 mg/dL (0.4-1.0); GFR - MDRD 96 (>89); GLUCOSE 100 mg/dL (70-100); HDL CHOLESTEROL 80 mg/dL; LDL CHOLESTEROL,CALCULATED 171 mg/dL; LDL/HDL RATIO 2.1 (<4.4); POTASSIUM 3.7 mmol/L (3.5-5.0); SODIUM 129 mmol/L (135-145); TRIGLYCERIDES 60 mg/dL; VLDL CHOLESTEROL 12 mg/dL
== END 2022-07-23 07:45 | disposition home or self-care (01) ==
LOC: LAB.N 07:44
PROVIDERS: ATTEND Nurse Practitioner Family
DX: I10 Essential (primary) hypertension (principal); E78.5 Hyperlipidemia, unspecified
CPT/HCPCS: 36415; 80053; 80061; 83721

== ENCOUNTER 2022-07-29 09:00 | Outpatient (CLI) | payer MEDICARE, OTHER ==
[2022-07-29 12:44] LABS: CALCIUM 9.6 mg/dL (8.5-10.3); CREATININE 0.6 mg/dL (0.4-1.0); POTASSIUM 3.9 mmol/L (3.5-5.0)
== END 2022-07-29 09:01 | disposition home or self-care (01) ==
LOC: LAB.N 09:00
PROVIDERS: ATTEND Nurse Practitioner Family
DX: E87.1 Hypo-osmolality and hyponatremia (principal)
CPT/HCPCS: 36415; 80048

== ENCOUNTER 2022-10-06 07:40 | Outpatient (CLI) | payer MEDICARE, OTHER | END 2022-10-06 07:41 | disposition home or self-care (01) | LOC: DI.N 07:40 | DX: Z53.9 Procedure and treatment not carried out, unspecified reason (principal) ==

== ENCOUNTER 2023-03-11 11:22 | Outpatient (CLI) | payer MEDICARE, OTHER ==
[2023-03-11 17:45] LABS: BASOPHILS % (AUTO) 0.8 %; EOSINOPHILS # (AUTO) 0.1 10^3/uL (0.0-0.7); EOSINOPHILS % (AUTO) 2.3 %; HCT - HEMATOCRIT 39.6 % (37.0-47.0); HGB - HEMOGLOBIN 12.8 g/dL (12.0-16.0); LYMPHOCYTES # (AUTO) 0.7 10^3/uL (1.5-3.5); LYMPHOCYTES % (AUTO) 14.3 %; MEAN CORPUSCULAR HGB CONC 32.3 g/dL (32.0-36.0); MEAN CORPUSCULAR VOLUME 89.6 fL (81.0-99.0); MEAN PLATELET VOLUME 9.3 fL (7.9-10.8); MONOCYTES # (AUTO) 0.4 10^3/uL (0.0-1.0); MONOCYTES % (AUTO) 8.2 %; NEUTROPHILS # (AUTO) 3.8 10^3/uL (1.5-6.6); PLT - PLATELET COUNT 333 10^3/uL (130-450); RED BLOOD COUNT 4.42 10^6/uL (4.20-5.40); RED CELL DISTRIBUTION WIDTH 14.3 % (12.0-15.0); WHITE BLOOD COUNT 5.1 x10^3/uL (4.8-10.8)
[2023-03-11 18:10] LABS: % IRON SATURATION 17 % (20-50); ALBUMIN 4.3 g/dL (3.2-5.5); ALBUMIN/GLOBULIN RATIO 1.5 (1.0-2.2); ALKALINE PHOSPHATASE 148 IU/L (42-121); ALT ALANINE AMINOTRANSFERASE 18 IU/L (10-60); AST ASPARTATE AMINOTRANSFERASE 22 IU/L (10-42); BUN - BLOOD UREA NITROGEN 13 mg/dL (6-20); CALCIUM 9.3 mg/dL (8.5-10.3); CARBON DIOXIDE - CO2 28 mmol/L (21-32); CHLORIDE 95 mmol/L (101-111); CHOL/HDL RATIO 2.5 (<4.4); CHOLESTEROL 201 mg/dL; CREATININE 0.6 mg/dL (0.4-1.0); GFR - MDRD 96 (>89); GLUCOSE 93 mg/dL (70-100); HDL CHOLESTEROL 79 mg/dL; IRON 66 ug/dL (28-170); LDL CHOLESTEROL,CALCULATED 113 mg/dL; LDL/HDL RATIO 1.4 (<4.4); POTASSIUM 4.3 mmol/L (3.5-5.0); SODIUM 131 mmol/L (135-145); TOTAL IRON BINDING CAPACITY 392 ug/dL (250-450); TOTAL PROTEIN 7.2 g/dL (6.7-8.2); TRANSFERRIN 280 mg/dL (192-382); TRIGLYCERIDES 44 mg/dL; VLDL CHOLESTEROL 9 mg/dL
== END 2023-03-11 11:23 | disposition home or self-care (01) ==
LOC: LAB.N 11:22
PROVIDERS: ATTEND Nurse Practitioner Family
DX: I10 Essential (primary) hypertension (principal); E78.5 Hyperlipidemia, unspecified; E87.1 Hypo-osmolality and hyponatremia; D50.9 Iron deficiency anemia, unspecified
CPT/HCPCS: 36415; 80053; 80061; 82728; 83540; 83721; 84466; 85025

== ENCOUNTER 2023-04-10 11:16 | Outpatient (CLI) | payer MEDICARE, OTHER ==
[2023-04-10 14:00] LABS: ALKALINE PHOSPHATASE 155 IU/L (42-121); GAMMA GLUTAMYL TRANSPEPTIDASE 14 IU/L (8-38)
== END 2023-04-10 11:17 | disposition home or self-care (01) ==
LOC: LAB 11:16
PROVIDERS: ATTEND Nurse Practitioner Family
DX: R74.8 Abnormal levels of other serum enzymes (principal)
CPT/HCPCS: 36415; 82977; 84075

== ENCOUNTER 2023-05-15 14:23 | Outpatient (CLI) | payer MEDICARE, OTHER ==
[2023-05-21 01:08] LABS: ALK PHOS BONE FRACTION 56 % (14-68); ALK PHOS INTESTINAL FRACTION 22 % (0-18); ALK PHOS LIVER FRACTION 22 % (18-85); ALKALINE PHOSPHATASE TOTAL 145 IU/L (44-121)
== END 2023-05-15 14:24 | disposition home or self-care (01) ==
LOC: LAB 14:23
PROVIDERS: ATTEND Nurse Practitioner Family
DX: R74.8 Abnormal levels of other serum enzymes (principal)
CPT/HCPCS: 84075; 84080

== ENCOUNTER 2023-06-23 12:30 | Outpatient (CLI) | payer MEDICARE, OTHER ==
--- NOTE | 2023-06-24 10:35 | Mammography Report ---
UNILATERAL RIGHT DIGITAL SCREENING MAMMOGRAM 3D/2D: 06/23/2023 CLINICAL: Routine screening. Personal history of left breast cancer. Comparison is made to exams dated: 06/16/2022 mammogram, 07/02/2021 mammogram, 04/20/2020 mammogram - [facility], 03/25/2019 mammogram, 04/07/2018 mammogram, and 03/17/2017 mammogram - [facility]. The right breast is heterogeneously dense, which may obscure small masses (category c / 51-75% glandu lar tissue). There are benign calcifications in the right breast. There also are benign vascular calcifications i n the right breast. No significant masses, calcifications, or other findings are seen in the breast. There has been no significant interval change. IMPRESSION: BENIGN There is no mammographic evidence of malignancy. A 1 year screening mammogram is recommended. This exam was interpreted at Station ID: [id number]. NOTE: For mammograms, a report in lay terms will be sent to the patient. Approximately 15% of breast malignancies will not be visualized mammographically. In the management of a palpable breast mass, a negative mammogram must not discourage biopsy of a clinically suspicious lesion. Electronically Signed By: Orlando Ramirez M.D. [email or web address]:06/23/2023 20:54:25 letter sent: No_Letter ACR BI-RADS Category 2: Benign Finding(s) 3342F PARENCHYMAL PATTERN: (D) - The breast(s) demonstrate(s) heterogeneously dense fibroglandular nathalia do. BI-RADS CATEGORY: (2) - 2 Mammogram [id number] 1 year screening LATERALITY: (B)
== END 2023-06-23 12:31 | disposition home or self-care (01) ==
LOC: DI 12:30
PROVIDERS: ATTEND Internal Medicine Hematology & Oncology
DX: Z12.31 Encounter for screening mammogram for malignant neoplasm of breast (principal); Z85.3 Personal history of malignant neoplasm of breast

== ENCOUNTER 2023-10-21 15:42 | Emergency (ER) | payer MEDICARE, OTHER ==
[2023-10-21 16:10] VITALS: O2SAT 98
--- NOTE | 2023-10-21 16:25 | XRAY Report ---
PROCEDURE: Chest 2 View X-Ray INDICATIONS: cough TECHNIQUE: 2 views of the chest were acquired. COMPARISON: None. FINDINGS: Surgical changes and devices: None. Lungs and pleura: No pleural effusions or pneumothorax. Lungs are clear. Mediastinum: Mediastinal contours appear normal. Heart size is normal. Bones and chest wall: No suspicious bony lesions. Overlying soft tissues appear unremarkable. IMPRESSION: No acute process. Reviewed by: Juan Allan MD on 10/21/2023 4:24 PM [facility] Approved by: Juan Allan MD on 10/21/2023 4:24 PM [facility] Station ID: [id number]
[2023-10-21 16:54] LABS: CORONAVIRUS 229E-RESP PCR NOT DETECTED; CORONAVIRUS HKU1-RESP PCR NOT DETECTED; CORONAVIRUS NL63-RESP PCR NOT DETECTED; CORONAVIRUS OC43-RESP PCR NOT DETECTED
[2023-10-21 16:55] LABS: B. PARAPERTUSSIS- RESP PCR PAN NOT DETECTED; B. PERTUSSIS- RESP PCR PANEL NOT DETECTED; C. PNEUMONIAE- RESP PCR PANEL NOT DETECTED; HUMAN METAPNEUMOVIRUS NOT DETECTED; INFLUENZA A- RESP PCR PANEL NOT DETECTED; INFLUENZA B - RESP PCR PANEL NOT DETECTED; M. PNEUMONIAE- RESP PCR PANEL NOT DETECTED; PARAINFLUENZA VIRUS 1 NOT DETECTED; PARAINFLUENZA VIRUS 2 NOT DETECTED; PARAINFLUENZA VIRUS 3 NOT DETECTED; PARAINFLUENZA VIRUS 4 NOT DETECTED; RHINOVIRUS/ENTEROVIRUS NOT DETECTED; RSV- RESP PCR PANEL NOT DETECTED
[2023-10-21 16:58] LABS: SARS-CoV-2 -RESP PCR PANEL DETECTED
--- NOTE | 2023-10-21 17:14 | ED Physician Documentation ---
PD HPI URI - Stated complaint Stated Complaint: GENERAL WEAKNESS/LOW ENERGY - Chief complaint Chief Complaint: Heent - History obtained from History obtained from: Patient - History of Present Illness Timing - onset: Yesterday Timing duration: Days (2) Timing details: Abrupt onset, Still present Associated symptoms: Fever, Chills, Nasal congestion, Dry cough. No: Dyspnea, NVD Contributing factors: No: Sick contact, Travel, Unimmunized Similar symptoms before: Has not had sx before Review of Systems Constitutional: reports: Fever, Chills, Myalgias, Fatigue Nose: reports: Congestion Throat: reports: Sore throat Respiratory: reports: Cough. denies: Dyspnea, Wheezing GI: denies: Vomiting, Diarrhea Neurologic: reports: Headache. denies: Altered mental status PD PAST MEDICAL HISTORY - Past Medical History Past Medical History: Yes Cardiovascular: High cholesterol, Other Respiratory: None Endocrine/Autoimmune: None GI: Chronic constipation BARBER APPRENTICE: Breast cancer : Other HEENT: None Psych: Depression Musculoskeletal: Osteoarthritis, Osteopenia Derm: None - Past Surgical History Past Surgical History: Yes General: Colonoscopy /BARBER APPRENTICE: Mastectomy - Present Medications Home Medications: Ambulatory Orders Medication Instructions Recorded Confirmed Ascorbate Calcium [Vitamin C] 500 mg PO DAILY 03/22/13 10/21/23 Aspirin [Aspir 81] 81 mg PO DAILY 03/22/13 10/21/23 Calcium Carbonate/Vitamin D3 1 each PO DAILY 03/22/13 10/21/23 [Calcium + Vitamin D Tablet] Multivitamin [Multi-Vitamin Daily] 1 each PO DAILY 03/22/13 10/21/23 Lisinopril [Zestril] 30 mg PO DAILY 04/14/23 10/21/23 Rosuvastatin Calcium [Crestor] 5 mg PO DAILY 10/21/23 10/21/23 amLODIPine [Norvasc] 5 mg PO DAILY 10/21/23 10/21/23 - Allergies Allergies/Adverse Reactions: Allergies Allergy/AdvReac Type Severity Reaction Status Date / Time No Known Drug Allergies Allergy Verified 10/20/21 07:18 - Social History Does the pt smoke?: No Smoking Status: Never smoker PD ED PE NORMAL - Vitals Vital signs reviewed: Yes - General General: Alert and oriented X 3, No acute distress, Well developed/nourished - HEENT HEENT: Moist mucous membranes, Pharynx benign - Neck Neck: Supple, no meningeal sign, No adenopathy - Cardiac Cardiac: RRR, No murmur - Respiratory Respiratory: Clear bilaterally - Abdomen Abdomen: Soft, Non tender - Derm Derm: Normal color, Warm and dry, No rash - Neuro Neuro: Alert and oriented X 3, Normal speech Results - Vitals Vitals: Oxygen O2 Source Room air - Labs Labs: Laboratory Tests 10/21/23 16:01 Nasal Adenovirus (PCR) NOT DETECTED Nasal B. parapertussis DNA (PCR) NOT DETECTED Nasal Coronavir 229E PCR NOT DETECTED Nasal Coronavir HKU1 PCR NOT DETECTED Nasal Coronavir NL63 PCR NOT DETECTED Nasal Coronavir OC43 PCR NOT DETECTED Nasal Enterovir/Rhinovir PCR NOT DETECTED Nasal Influenza B PCR NOT DETECTED Nasal Influenza A PCR NOT DETECTED Nasal Parainfluen 1 PCR NOT DETECTED Nasal Parainfluen 2 PCR NOT DETECTED Nasal Parainfluen 3 PCR NOT DETECTED Nasal Parainfluen 4 PCR NOT DETECTED Nasal RSV (PCR) NOT DETECTED Nasal B.pertussis DNA PCR NOT DETECTED Nasal C.pneumoniae (PCR) NOT DETECTED Antoine Human Metapneumo PCR NOT DETECTED Nasal M.pneumoniae (PCR) NOT DETECTED Nasal SARS-CoV-2 (PCR) DETECTED A PD Medical Decision Making - ED course Complexity details: reviewed results (patient viral PCR test positive for COVID. She has had symptoms just since yesterday and would like to try the Paxlovid. [facility] supportive care. ), d/w patient Departure - Departure Disposition: 01 Home, Self Care Clinical Impression: COVID-19, Acute viral syndrome Condition: Stable Record reviewed to determine appropriate education?: Yes Instructions: ED Viral Syndrome Follow-Up: Gertrude Chavez ARNP [Primary Care Provider] - Comments: Your respiratory viral test was positive for COVID. Your chest x-ray is clear without any signs of pneumonia or fluid buildup. Stay well-hydrated with frequent fluids. I would consider taking Tylenol 500 to 650 mg every 4-6 hours regularly for the next several days to week knowing your going to be having the fevers and body pains. To that you can add ibuprofen or naproxen [id number] tablets 2 tablets twice daily if needed with food. Take the Paxlovid as instructed per the packaging which will be 3 tablets twice daily for 5 days. Recheck if worsening symptoms generally in particular with trouble breathing wheezing or lightheadedness. Otherwise you will likely feel ill for 5 to 7 days and may have some persistent general fatigue/weakness/shortness of breath for a few weeks after. You should be not really contagious anymore after the fevers and acute illness feelings resolved which is typically about 5 to 7 days. Forms: PCP List Discharge Date/Time: 10/21/23 18:02
[2023-10-21] MEDS ORDERED: NIRMATRELVIR/RITONAVIR PREPACK PO STA (17:39)
[2023-10-21] MEDS ORDERED: ACETAMINOPHEN 325 MG TABLET PO STA (17:40)
[2023-10-21 18:09] VITALS: BP 145/78
== END 2023-10-21 18:02 | disposition home or self-care (01) ==
LOC: ED 15:42
DX: U07.1 COVID-19 (principal); B34.9 Viral infection, unspecified; E78.00 Pure hypercholesterolemia, unspecified; Z79.899 Other long term (current) drug therapy; Z79.82 Long term (current) use of aspirin
CPT/HCPCS: 71046; 87633; 99283; 99284; A9270; J3490

== ENCOUNTER 2023-12-15 10:03 | Emergency (ER) | payer MEDICARE, OTHER ==
--- NOTE | 2023-12-15 13:44 | Ultrasound Report ---
PROCEDURE: Duplex Ext Veins Left INDICATIONS: L ARM swelling TECHNIQUE: Real-time imaging, as well as color and pulse Doppler interrogation, were performed of the left upper extremity deep veins. COMPARISON: None. FINDINGS: The deep veins are normally compressible, and free of intraluminal thrombus. Color and pu lse Doppler demonstrate normal phasic intraluminal flow. There is normal augmentation response to di stal compression maneuver. IMPRESSION: No deep venous thrombosis of the visualized upper extremity. Reviewed by: Juan Allan MD on 12/15/2023 1:43 PM PST Approved by: Juan Allan MD on 12/15/2023 1:43 PM [facility] Station ID: [id number]
--- NOTE | 2023-12-15 14:54 | ED Physician Documentation ---
History of Present Illness - Stated complaint Stated Complaint: LT ARM SWELLING - Chief complaint Chief Complaint: Ext Problem - History obtained from History obtained from: Patient - Additonal information Additional information: The patient comes to the emergency department chief complaint of left arm swelling for the last couple of days. The patient states that she has a history of breast cancer with mastectomy and radiation on that side and had 12 lymph nodes removed. This was back in 1994. She states she had very bad lymphedema at that time and had to go through 2 weeks of intensive therapy for it. She states that ever since, she has been very careful about her arm. She wears a compression sleeve during the day and puts 5 layers of wrapping on it at night. She states that normally, it is the same size as her other arm. The patient states that a couple of days ago, she began to notice increasing swelling in her Left upper extremity. She states that it seemed to start in the forearm and travel up. She denies any pain, fever, or chills. She did notice some redness and increased warmth. She does note that she has a tiny cut on her left index finger from gardening, but denies any swelling of the finger or red streaking. Patient states that she has not worn her sleep for the last couple of days because she was concerned about the swelling. She denies any history of DVT or PE. No recurrence of cancer that she knows of. No increased use of the left arm. No direct injury. No other complaints at this time. PD PAST MEDICAL HISTORY - Past Medical History Past Medical History: Yes Cardiovascular: High cholesterol, Other Respiratory: None Endocrine/Autoimmune: None GI: Chronic constipation PRESS OPERATOR HELPER: Breast cancer : Other HEENT: None Psych: Depression Musculoskeletal: Osteoarthritis, Osteopenia Derm: None - Past Surgical History Past Surgical History: Yes General: Colonoscopy Ortho: Hip replacement /PRESS OPERATOR HELPER: Mastectomy - Present Medications Home Medications: Ambulatory Orders Medication Instructions Recorded Confirmed Ascorbate Calcium [Vitamin C] 500 mg PO DAILY 03/22/13 10/21/23 Aspirin [Aspir 81] 81 mg PO DAILY 03/22/13 10/21/23 Calcium Carbonate/Vitamin D3 1 each PO DAILY 03/22/13 10/21/23 [Calcium + Vitamin D Tablet] Multivitamin [Multi-Vitamin Daily] 1 each PO DAILY 03/22/13 10/21/23 Lisinopril [Zestril] 30 mg PO DAILY 04/14/23 10/21/23 Rosuvastatin Calcium [Crestor] 5 mg PO DAILY 10/21/23 10/21/23 amLODIPine [Norvasc] 5 mg PO DAILY 10/21/23 10/21/23 Sulfamethox/Trimeth 800/160 1 each PO BID #14 tablet 12/15/23 [Bactrim Ds 800/160] cephALEXin [Keflex] 500 mg PO Q6H #28 cap 12/15/23 - Allergies Allergies/Adverse Reactions: Allergies Allergy/AdvReac Type Severity Reaction Status Date / Time No Known Drug Allergies Allergy Verified 12/15/23 10:25 - Social History Does the pt smoke?: No Smoking Status: Never smoker Does the pt drink ETOH?: Yes Does the pt have substance abuse?: No - Immunizations Immunizations are current?: No PD ED PE NORMAL - Vitals Vital signs reviewed: Yes - General General: Alert and oriented X 3, No acute distress, Well developed/nourished - HEENT HEENT: Atraumatic, PERRL, EOMI, Moist mucous membranes - Neck Neck: Supple, no meningeal sign - Respiratory Respiratory: No respiratory distress - Derm Derm: Warm and dry, No rash, Other (Mild erythema and moderate warmth involving especially the dependent tissues of the forearm, intensifying over the elbow and sending to the mid upper arm. Some demarcation of erythema, though mostly, vague transition from erythema to normal skin. No erythema, edema, or streaking of left index finge) - Extremities Extremities: No deformity, Other (Marked edema left upper extremity. No induration or fluctuance. Some mild increased firmness of the dependent tissues of the forearm. No tenderness.) - Neuro Neuro: Alert and oriented X 3 - Psych Psych: Normal mood, Normal affect Results - Vitals Vitals: Vital Signs - 24 hr 12/15/23 10:27 Temperature 37 C Heart Rate 78 Respiratory 18 Rate Blood Pressure 147/65 H O2 Saturation 99 Oxygen O2 Source Room air - Rads (name of study) Venous duplex ultrasound left upper extremity Relevant Findings:: Final report received, See rad report (Negative for DVT) PD Medical Decision Making - ED course Complexity details: reviewed results, re-evaluated patient, considered differential, d/w patient ED course: The patient was worked up with ultrasound of the left upper extremity, which was negative. I discussed with patient that I am not entirely certain what has caused her swelling of the left upper extremity. She does have the wound on her left index finger and does have some erythema and warmth associated with the considerable area of edema of her left upper extremity. However, given that she does not have pain and any fever or chills, would be a little unusual for cellulitis. Additionally, the patient does not have any red streaking coming from her finger. Nonetheless, given that there is been no other trauma and the patient does not have a DVT or any overuse, I feel it is reasonable to treat for potential cellulitis. I started patient on antibiotics for this. We discussed the usual indications for return. Departure - Departure Disposition: 01 Home, Self Care Clinical Impression: Edema of upper extremity Cellulitis Qualifiers: Site of cellulitis: extremity Site of cellulitis of extremity: upper extremity Laterality: left Qualified Code(s): L03.114 - Cellulitis of left upper limb Condition: Stable Instructions: ED Infec Skin Cellulitis Prescriptions: Sulfamethox/Trimeth 800/160 [Bactrim Ds 800/160] 1 each PO BID #14 tablet cephALEXin [Keflex] 500 mg PO Q6H #28 cap Comments: Your ultrasound is negative. Your symptoms are not entirely consistent with cellulitis but given that you do have redness and warmth and the wound on your finger, is reasonable to treat for this since your drainage is not ideal out of that arm. You have been started on antibiotics from the emergency department today, and prescriptions have been electronically transmitted to the [facility] pharmacy in [place] for the same. You should pick these up this evening if possible and take your next dose is in the morning. Please schedule follow-up appoint with your primary doctor for a soon as possible. If the antibiotics do not get rid of the swelling, it is unlikely then that this is truly infection. You should continue your usual compressive measures and also, should elevate the arm whenever possible and try to milk some of the swelling out. Please follow- up with your primary doctor if the swelling does not go away after the antibiotics. If you develop severely worsening symptoms with fever and chills or severe pain, you should return to the emergency department. Forms: PCP List
[2023-12-15] MEDS: cephALEXin 250 MG CAPSULE PO STA (15:00)
[2023-12-15] MEDS: SULFAMETH/TRIMETH DS 800/160 MG TABLET PO STA (15:00)
[2023-12-15 15:35] VITALS: BP 142/63; O2SAT 98
== END 2023-12-15 15:29 | disposition home or self-care (01) ==
LOC: ED 10:03
DX: L03.114 Cellulitis of left upper limb (principal); R60.0 Localized edema; S61.211A Laceration without foreign body of left index finger without damage to nail, initial encounter; X58.XXXA Exposure to other specified factors, initial encounter; E78.00 Pure hypercholesterolemia, unspecified; Z79.899 Other long term (current) drug therapy; Z79.82 Long term (current) use of aspirin
CPT/HCPCS: 99283; 99284

== ENCOUNTER 2024-04-19 08:25 | Outpatient (CLI) | payer MEDICARE, OTHER ==
[2024-04-19 11:53] LABS: BASOPHILS # (AUTO) 0.1 10^3/uL (0.0-0.1); BASOPHILS % (AUTO) 0.9 %; EOSINOPHILS # (AUTO) 0.2 10^3/uL (0.0-0.7); HCT - HEMATOCRIT 40.8 % (37.0-47.0); HGB - HEMOGLOBIN 13.3 g/dL (12.0-16.0); LYMPHOCYTES # (AUTO) 0.8 10^3/uL (1.5-3.5); LYMPHOCYTES % (AUTO) 11.8 %; MEAN CORPUSCULAR HEMOGLOBIN 30.4 pg (27.0-31.0); MEAN CORPUSCULAR HGB CONC 32.6 g/dL (32.0-36.0); MEAN CORPUSCULAR VOLUME 93.2 fL (81.0-99.0); MEAN PLATELET VOLUME 9.5 fL (7.9-10.8); MONOCYTES # (AUTO) 0.6 10^3/uL (0.0-1.0); MONOCYTES % (AUTO) 9.8 %; NEUTROPHILS # (AUTO) 4.7 10^3/uL (1.5-6.6); NEUTROPHILS % (AUTO) 74.3 %; PLT - PLATELET COUNT 295 10^3/uL (130-450); RED BLOOD COUNT 4.38 10^6/uL (4.20-5.40); RED CELL DISTRIBUTION WIDTH 13.7 % (12.0-15.0); WHITE BLOOD COUNT 6.4 x10^3/uL (4.8-10.8)
[2024-04-19 12:22] LABS: ALBUMIN 4.4 g/dL (3.2-5.5); ALBUMIN/GLOBULIN RATIO 1.9 (1.0-2.2); ALKALINE PHOSPHATASE 100 IU/L (42-121); ALT ALANINE AMINOTRANSFERASE 18 IU/L (10-60); AST ASPARTATE AMINOTRANSFERASE 25 IU/L (10-42); BILIRUBIN,TOTAL 1.3 mg/dL (0.2-1.0); BUN - BLOOD UREA NITROGEN 19 mg/dL (6-20); CALCIUM 9.7 mg/dL (8.5-10.3); CARBON DIOXIDE - CO2 29 mmol/L (21-32); CHLORIDE 97 mmol/L (101-111); CHOL/HDL RATIO 2.4 (<4.4); CHOLESTEROL 192 mg/dL; CREATININE 0.6 mg/dL (0.6-1.3); GFR - MDRD 96 (>89); GLUCOSE 113 mg/dL (74-104); HDL CHOLESTEROL 80 mg/dL; LDL CHOLESTEROL,CALCULATED 101 mg/dL; LDL/HDL RATIO 1.3 (<4.4); POTASSIUM 4.4 mmol/L (3.5-4.5); SODIUM 132 mmol/L (135-145); TOTAL PROTEIN 6.7 g/dL (6.4-8.9); TRIGLYCERIDES 55 mg/dL (48-352); VLDL CHOLESTEROL 11 mg/dL
== END 2024-04-19 08:26 | disposition home or self-care (01) ==
LOC: LAB.N 08:25
PROVIDERS: ATTEND Nurse Practitioner Family
DX: I10 Essential (primary) hypertension (principal); E78.5 Hyperlipidemia, unspecified
CPT/HCPCS: 36415; 80053; 80061; 83721; 84443; 85025

== ENCOUNTER 2024-06-16 13:48 | Outpatient (CLI) | payer MEDICARE, OTHER | END 2024-06-16 13:49 | disposition home or self-care (01) | LOC: DI 13:48 | PROVIDERS: ATTEND Nurse Practitioner Family | DX: R94.31 Abnormal electrocardiogram [ECG] [EKG] (principal); I49.9 Cardiac arrhythmia, unspecified; E78.5 Hyperlipidemia, unspecified; I11.9 Hypertensive heart disease without heart failure | CPT/HCPCS: 93307 ==

== ENCOUNTER 2024-07-19 14:48 | Outpatient (CLI) | payer MEDICARE, OTHER ==
--- NOTE | 2024-07-20 12:18 | DEXA Report ---
PROCEDURE: Dexa Spine and/or Hip INDICATIONS: POST MENOPAUSAL TECHNIQUE: Dual energy x-ray absorptiometry (DXA) was performed on a [employer] System. Regions measur ed are the AP Spine, femoral neck, and if needed forearm. COMPARISON: DEXA 03/20/2017 FINDINGS: Lumbar Spine: Bone Mineral Density: 1.398 g/cm/cm,T score: 1.8. Since the most recent prior study, there has been a statistically significant increase in bone mineral density by 26.2 percent. Left Forearm: Bone Mineral Density: 0.324 g/cm/cm, T score: -3.1. FRAX score not calculated due to T score less than -2.5. (T score greater or equal to -1.0: NORMAL) (T score from -1.1 to -2.4: OSTEOPENIA) (T score less than or equal to -2.5 to: OSTEOPOROSIS) Impression: By WHO criteria, this patient has osteoporosis. Interval statistical increase in bone mineral density of the lumbar spine. Left forearm not previousl y assessed. Patients with diagnosis of osteoporosis or osteopenia should have regular bone mineral density assess ment. For those eligible for Medicare, routine testing is allowed once every 2 years. Testing frequ ency can be increased for patients who have rapidly progressing disease or for those who are receivin g medical therapy to restore bone mass. Reviewed by: Tone Lindo MD on 07/20/2024 12:16 PM PDT Approved by: Tone Lindo MD on 07/20/2024 12:16 PM PDT Station ID: [id number]
--- NOTE | 2024-07-20 13:46 | DEXA Report ---
PROCEDURE: Dexa Forearm INDICATIONS: bilateral hip replaceents TECHNIQUE: Dual energy x-ray absorptiometry (DXA) was performed on a [employer] System. Regions measur ed are the AP Spine, femoral neck, and if needed forearm. COMPARISON: DEXA 03/20/2017 FINDINGS: Lumbar Spine: Bone Mineral Density: 1.398 g/cm/cm,T score: 1.8. Since the most recent prior study, th ere has been a statistically significant increase in bone mineral density by 26.2 percent. Left Forearm: Bone Mineral Density: 0.324 g/cm/cm, T score: -3.1. FRAX score not calculated due to T score less than -2.5. (T score greater or equal to -1.0: NORMAL) (T score from -1.1 to -2.4: OSTEOPENIA) (T score less than or equal to -2.5 to: OSTEOPOROSIS) Impression: By WHO criteria, this patient has osteoporosis. Interval statistical increase in bone mineral density of the lumbar spine. Left forearm not previousl y assessed. Patients with diagnosis of osteoporosis or osteopenia should have regular bone mineral density assess ment. For those eligible for Medicare, routine testing is allowed once every 2 years. Testing frequ ency can be increased for patients who have rapidly progressing disease or for those who are receivin g medical therapy to restore bone mass. Reviewed by: Donnie Darnell MD on 07/20/2024 12:45 PM [facility] Approved by: Donnie Darnell MD on 07/20/2024 12:45 PM [facility] Station ID: [id number]
== END 2024-07-19 14:49 | disposition home or self-care (01) ==
LOC: DI 14:48
PROVIDERS: ATTEND Nurse Practitioner Family
DX: Z78.0 Asymptomatic menopausal state (principal); Z96.643 Presence of artificial hip joint, bilateral; M81.0 Age-related osteoporosis without current pathological fracture